=== PATIENT | female | born 1980 | race Caucasian/White ===

== ENCOUNTER → 2019-03-24 | Outpatient (CLI) | payer OTHER ==
--- NOTE | 2019-03-25 15:00 | MM ---
Reason for exam: clinical finding. Baseline mammogram. History: Patient has history of endometrial cancer at age 26. Benign excisional biopsy of the right breast, 2013. Physical Findings: Nurse Summary: 2cm nodule in the right breast at 10 o'clock and a 2cm nodule in the left breast at 11 o'clock (nurse dw). MG 3D Diag Mammo W/Cad LAKIA Bilateral CC, MLO, and XCCL view(s) were taken. The breast tissue is heterogeneously dense. This may lower the sensitivity of mammography. There are few scattered calcifications. No suspicious groups. Bilateral upper outer quadrant focal asymmetries. Left central inner 6 x 8mm posterior depth mass. These results were verbally communicated with the patient and result sheet given to the patient on 03/24/19. ASSESSMENT: Incomplete: need additional imaging evaluation, BI-RAD 0 RECOMMENDATION: Ultrasound of both breasts.
--- NOTE | 2019-03-25 15:07 | USB ---
Reason for exam: additional evaluation requested from abnormal screening. History: Patient has history of endometrial cancer at age 26. Benign excisional biopsy of the right breast, 2013. US Breast Limited BILAT Right limited breast ultrasound including focal area of concern, retroareolar and axilla demonstrates a 2.7 x 1.2 x 1.0cm solid lesion at 10 o'clock, 6 month follow up recommended, a 0.6 x 0.5 x 0.7cm lesion at 10 o'clock, questionable edge shadowing (palpable) biopsy recommended, a 0.3 x 0.3 x 0.4cm lesion too small to characterize at 11 o'clock, 6 month follow up recommended and a 0.3 x 0.2 x 0.3cm solid lesion at 12 o'clock, 6 month follow up recommended. Left limited breast ultrasound including focal area of concern, retroareolar and axilla demonstrates a 2.0 x 1.7 x 1.5cm solid lobe at 2 o'clock, palpable, biopsy recommended and a 0.6 x 0.5 x 1.1cm mixed lesion at 9 o'clock, corresponds with mammogram, biopsy recommended. These results were verbally communicated with the patient and result sheet given to the patient on 03/24/19. ASSESSMENT: Suspicious, BI-RAD 4 RECOMMENDATION: Ultrasound core biopsy of both breasts. Called Dr. Vallejo with mammographic findings and has scheduled an appointment for the patient for 04/01/19 at 7:[address] Kaiser. Biopsy scheduled for 04/11/19 at 8:00. PRELIMINARY REPORT CALLED AND FAXED TO DR. KAISER ON 03/25/19.
== END | disposition home or self-care (01) ==
LOC: RADMAMWWP 13:55
PROVIDERS: ATTEND Family Medicine Addiction Medicine
DX: N63.10 Unspecified lump in the right breast, unspecified quadrant (principal); R92.8 Other abnormal and inconclusive findings on diagnostic imaging of breast
CPT/HCPCS: 77066; 76642; G0279; 77062

== ENCOUNTER → 2019-04-01 | Outpatient (CLI) | payer OTHER ==
[2019-04-01 07:42] VITALS: BP 115/79; PULSE 75; RESP 16; TEMP 98.2; BMI 22.6
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
== END | disposition home or self-care (01) ==
LOC: WWCWWP 07:21
PROVIDERS: ATTEND Surgery
DX: Z53.9 Procedure and treatment not carried out, unspecified reason (principal)

== ENCOUNTER → 2019-04-11 | Day surgery (SDC) | payer OTHER ==
[2019-04-11 07:55] VITALS: RESP 16; BMI 22.6
[2019-04-11 10:28] VITALS: BP 100/64; PULSE 76; TEMP 97.8
--- NOTE | 2019-04-11 12:25 | USB ---
EXAMINATION TYPE: US biopsy breast VAD RT, US biopsy breast VAD LT Post procedure bilateral digital diagnostic mammograms DATE OF EXAM: 04/11/2019 CLINICAL HISTORY: 38-year-old female palpable abnormality 10:00 right breast and ultrasound abnormality 9:00 left breast. R92.8 Abnormal Mammogram. TECHNIQUE: Ultrasound guided core biopsy of the bilateral breasts COMPARISON: 03/24/2019 FINDINGS: The procedure of ultrasound guided core biopsy was explained to the patient. Benefits, alternatives, and risks were discussed. An informed consent was then obtained. The patient was placed in supine positioning for imaging and for the procedure. The overlying skin was prepped and draped in usual sterile fashion. Lidocaine was used as anesthetic into the skin and subcutaneous tissue up to area of concern in each breast in turn. RIGHT, 10:00 palpable - initial scanning showed a focal heterogeneous area of tissue, suspected dense island of fibroglandular tissue. The area became less defined and after the anesthetic injection. Under ultrasound guidance, a 13- gauge vacuum-assisted Mammotome Elite biopsy gun device was used to obtain 7 core samples. Following this, a coil clip was left in lesion. LEFT, 9:00 hypoechoic - under ultrasound guidance, a 13-gauge vacuum-assisted Mammotome Elite biopsy gun device was used to obtain 6 core samples. Following this, a wing clip was left in lesion. The patient tolerated the procedure well without any immediate complication. The patient was kept in the radiology department for short stay after the procedure and then discharged home in stable condition. Postprocedure mammogram shows right-sided coil clip in the region of the posterior upper-outer quadrant global asymmetry. Wing clip is located at the 10:00 position corresponding to an area of nodularity. IMPRESSION: Successful, uncomplicated ultrasound guided core biopsy of: 1.) 10:00 palpable area in the right breast (suspect a dense island of fibroglandular tissue) and 2.) 9:00 lesion in the left breast, benign etiology favored. Full pathology results to follow. If benign results, mammographic follow up can be performed. Pathology Results: Benign A. RIGHT BREAST, 10:00, ULTRASOUND GUIDED CORE BIOPSY: Fibrocystic changes including stromal fibrosis/scar and small cysts. B. LEFT BREAST, 9:00, ULTRASOUND GUIDED CORE BIOPSY: Fibroadenoma/fibroadenomatoid hyperplasia and background fibrocystic changes. Recommendation Follow up ultrasound of both breasts in 6 months. BHAVYAD
== END | disposition home or self-care (01) ==
LOC: RADUSWWP 07:34
PROVIDERS: ATTEND Surgery
DX: D24.2 Benign neoplasm of left breast (principal); N60.12 Diffuse cystic mastopathy of left breast; N60.11 Diffuse cystic mastopathy of right breast
CPT/HCPCS: 19083; 88305; 77066; A4648; J2001

== ENCOUNTER → 2019-04-21 | Outpatient (CLI) | payer OTHER ==
[2019-04-21 16:27] VITALS: BP 119/74; PULSE 88; RESP 18; TEMP 98.3; BMI 22.8
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
== END | disposition home or self-care (01) ==
LOC: WWCWWP 15:33
PROVIDERS: ATTEND Surgery
DX: Z53.9 Procedure and treatment not carried out, unspecified reason (principal)

== ENCOUNTER 2019-05-10 08:03 | Day surgery (SDC) | payer OTHER ==
[2019-05-09 11:06] VITALS: BMI 22.3
[~2019-05-10 08:03] MED LIST: DEXAMETHASONE SOD PHOSPHATE 10 MG/ML 1 ML VIAL IV ONE; HEPARIN SODIUM,PORCINE 5,000 UNIT/ML 1 ML VIAL SQ ONE; LACTATED RINGERS 1,000 ML IV SCH; MIDAZOLAM 2 MG/2 ML VIAL IV PRN; ONDANSETRON 4 MG/2 ML VIAL IVP ONE; Pre Op ABX Message 1 EACH MISC MISCELLANE ONE; SCOPOLAMINE 1.5MG/72HR PATCH TRANSDERM ONE; fentaNYL (PF) 50 MCG/ML 2 ML AMP IV PRN
[2019-05-10 08:38] LABS: Glucose,Whole Blood 80 mg/dL (75-99)
[2019-05-10] MEDS ORDERED: MIDAZOLAM 2 MG/2 ML VIAL ONE (08:45)
[2019-05-10] MEDS ORDERED: LIDOCAINE 1% INJ 10MG/ML (20 ML MDV) ONE (08:45)
[2019-05-10] MEDS ORDERED: fentaNYL (PF) 50 MCG/ML 2 ML AMP ONE (08:45)
[2019-05-10] MEDS ORDERED: PROPOFOL 10 MG/ML 20 ML VIAL IV ONE (08:45)
[2019-05-10] MEDS ORDERED: HYDROmorphone (PF) 1 MG/ML ONE (08:45)
[2019-05-10] MEDS ORDERED: LIDOCAINE (PF) 10 MG/ML 2 ML VIAL SQ ONE ×2 (09:06→09:23)
--- NOTE | 2019-05-10 10:21 | P.OP ---
Date of Procedure: 05/10/19 Preoperative Diagnosis: Palpable mass right breast, increasing in size tender, core biopsy benign Postoperative Diagnosis: Same Procedure(s) Performed: Right breast excisional biopsy via axillary incision Anesthesia: MARY Surgeon: Sakshi Kaiser Estimated Blood Loss (ml): 20 IV fluids (ml): 500 Pathology: other (Right breast tissue) Condition: stable Disposition: same day Indications for Procedure: Palpable mass right breast increasing in size and tender, core biopsy benign Operative Findings: Dense breast tissue, palpable mass upper outer quadrant Description of Procedure: The patient was taken to the operating room and following induction of anesthesia the right breast was prepped and draped in a sterile fashion. An axillary incision was made and dissection was performed to the palpable mass in the upper outer quadrant. With careful dissection we ere able to remove this area of tissue. Hemostasis was attained using electrocautery device as well as the Harmonic scalpel. Radiograph of the specimen revealed that the correct tissue had been removed. There was a marker in place at the area of palpable mass that had been biopsied preoperatively. This was a coil marker. The area of concern was removed. The wound was well irrigated. Surgicel and iodoform was placed. The subcutaneous tissues were closed using a 3-0 Vicryl suture. The skin was closed using a 4-0 Monocryl. Steri-Strips were applied. The patient tolerated the procedure in stable condition. All instrument and sponge counts were correct at the end of the case.
--- NOTE | 2019-05-10 10:23 | P.DS ---
Providers Attending physician: Sakshi Kaiser Primary care physician: Edy Vallejo Plan - Discharge Summary Discharge Rx Participant: Yes New Discharge Prescriptions: No Action Diazepam [Valium] 2 mg PO Q8HR PRN PRN Reason: Anxiety Discharge Medication List Diazepam [Valium] 2 mg PO Q8HR PRN 04/11/19 [History] Follow up Appointment(s)/Referral(s): Sakshi Kaiser MD [STAFF PHYSICIAN] - 1 Week Activity/Diet/Wound Care/Special Instructions: do not drive may shower after 48 hours wear bra at all times unless showering Discharge Disposition: HOME SELF-CARE
[2019-05-10 10:43] VITALS: TEMP 98.6
[2019-05-10] MEDS ORDERED: LACTATED RINGERS 1,000 ML IV ONE ×2 (10:59)
[2019-05-10 11:35] VITALS: RESP 18
[2019-05-10] MEDS ORDERED: HYDROcodone/APAP 5-325MG 1 EACH TAB PO ONE (11:45)
[2019-05-10 11:54] VITALS: BP 95/58; PULSE 65
--- NOTE | 2019-05-11 10:32 | MM ---
EXAMINATION TYPE: MG surgical specimen RT DATE OF EXAM: 05/10/2019 CLINICAL HISTORY: Palpable right breast abnormality, surgically excised TECHNIQUE: Surgical specimen was obtained from a right palpable abnormality that had been previously biopsied 04/11/2019 confirming the presence of an associated coil-shaped biopsy marker. COMPARISON: Breast biopsy dated 04/11/2019 IMPRESSION: As above
== END 2019-05-10 12:16 | disposition home or self-care (01) ==
LOC: OR 08:03
PROVIDERS: ATTEND Surgery
DX: N60.21 Fibroadenosis of right breast (principal); N64.89 Other specified disorders of breast; N60.11 Diffuse cystic mastopathy of right breast; N64.4 Mastodynia; F17.210 Nicotine dependence, cigarettes, uncomplicated; J30.2 Other seasonal allergic rhinitis; N15.9 Renal tubulo-interstitial disease, unspecified; H54.61 Unqualified visual loss, right eye, normal vision left eye; M79.7 Fibromyalgia; F41.9 Anxiety disorder, unspecified; E78.5 Hyperlipidemia, unspecified; G43.909 Migraine, unspecified, not intractable, without status migrainosus; Z90.710 Acquired absence of both cervix and uterus; Z85.42 Personal history of malignant neoplasm of other parts of uterus; Z80.49 Family history of malignant neoplasm of other genital organs; Z80.1 Family history of malignant neoplasm of trachea, bronchus and lung; Z80.3 Family history of malignant neoplasm of breast; Z80.42 Family history of malignant neoplasm of prostate; Z80.0 Family history of malignant neoplasm of digestive organs; Z90.89 Acquired absence of other organs; Z98.890 Other specified postprocedural states; Z87.820 Personal history of traumatic brain injury; Z88.0 Allergy status to penicillin; Z88.6 Allergy status to analgesic agent; Z88.8 Allergy status to other drugs, medicaments and biological substances; Z88.5 Allergy status to narcotic agent; Z88.1 Allergy status to other antibiotic agents
CPT/HCPCS: 88307; 76098; 19125; J2250; J1644; J1100; J2405; J2001; J3010; J1170; J2704

== ENCOUNTER 2024-03-25 23:02 | Emergency (ER) | payer OTHER ==
[2024-03-25 23:07] VITALS: RESP 18; TEMP 98.6
[2024-03-26 00:14] LABS: Appearance,Urine Clear (Clear); Bilirubin,Urine Negative (Negative); Blood,Urine Negative (Negative); Color,Urine Colorless; Glucose,Urine (UA) Negative (Negative); Ketones,Urine Negative (Negative); Leukocyte Esterase,Urine Negative (Negative); Nitrite,Urine Negative (Negative); Protein,Urine Negative (Negative); Specific Gravity,Urine 1.004 (1.001-1.035); Urobilinogen,Urine <2.0 mg/dL (<2.0)
[2024-03-26] MEDS: diphenhydrAMINE 50 MG/ML 1 ML VIAL IVP STA (00:27)
[2024-03-26] MEDS: METOCLOPRAMIDE 5 MG/ML 2 ML VIAL IVP STA (00:33)
[2024-03-26] MEDS: SODIUM CHLORIDE 0.9% 1,000 ML IV STA (00:36)
[2024-03-26 02:01] VITALS: PULSE 60
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
[2024-03-26 02:15] LABS: Basophils % (A) 0 %; Eosinophils # (A) 0.1 k/uL (0-0.7); Eosinophils % (A) 1 %; HGB 14.3 gm/dL (11.4-16.0); Lymphocytes # (A) 2.5 k/uL (1.0-4.8); Lymphocytes % (A) 20 %; MCH 35.6 pg (25.0-35.0); MCHC 34.9 g/dL (31.0-37.0); Macrocytosis Slight; Monocytes # (A) 0.7 k/uL (0-1.0); Monocytes % (A) 5 %; Neutrophils # (A) 8.9 k/uL (1.3-7.7); Neutrophils % (A) 71 %; Platelet Count 283 k/uL (150-450); RBC 4.02 m/uL (3.80-5.40); RDW 12.7 % (11.5-15.5); WBC 12.4 k/uL (3.8-10.6)
[2024-03-26 02:23] LABS: ALT 15 U/L (4-34); AST 24 U/L (14-36); African American GFR (CKD) >90 (>60 ml/min/1.73 sqM); Albumin 4.6 g/dL (3.5-5.0); Alkaline Phosphatase 74 U/L (38-126); Anion Gap 8 mmol/L; Blood Urea Nitrogen 16 mg/dL (7-17); Calcium 9.9 mg/dL (8.4-10.2); Carbon Dioxide 23 mmol/L (22-30); Chloride 105 mmol/L (98-107); Glucose 99 mg/dL (74-99); Lipase 143 U/L (23-300); Non-African American GFR(CKD) >90 (>60 ml/min/1.73 sqM); Potassium 3.7 mmol/L (3.5-5.1); Sodium 136 mmol/L (137-145); Total Bilirubin 0.6 mg/dL (0.2-1.3); Total Protein 7.4 g/dL (6.3-8.2)
[2024-03-26 03:38] VITALS: BP 121/80
--- NOTE | 2024-03-26 07:35 | XR ---
EXAMINATION TYPE: XR chest 2V DATE OF EXAM: 03/26/2024 COMPARISON: 02/26/2010 INDICATION: Chest pain short of breath nausea TECHNIQUE: Frontal and lateral views of the chest are obtained. FINDINGS: The heart size is normal. The pulmonary vasculature is normal. The lungs are clear. IMPRESSION: 1. No acute pulmonary process. [facility], Workstation: [facility], 03/26/2024 7:33 AM
== END 2024-03-26 03:40 | disposition home or self-care (01) ==
LOC: EC 23:02
CPT/HCPCS: 36415; 71046; 80053; 81003; 83690; 84484; 85025; 93005; 96361; 96374; 96375; 99284

== ENCOUNTER 2024-04-20 01:34 | Emergency (ER) | payer OTHER ==
[2024-04-20 01:44] VITALS: TEMP 98.3
[2024-04-20] MEDS: MECLIZINE 12.5 MG TAB PO STA (02:30)
[2024-04-20] MEDS: SODIUM CHLORIDE 0.9% 1,000 ML IV STA (02:31)
[2024-04-20] MEDS: HYDROmorphone 0.5 MG/0.5 ML SYRINGE IVP STA (02:35)
[2024-04-20 02:37] LABS: Basophils # (A) 0.1 k/uL (0-0.2); Basophils % (A) 1 %; Eosinophils # (A) 0.3 k/uL (0-0.7); Eosinophils % (A) 2 %; HCT 40.7 % (34.0-46.0); HGB 13.7 gm/dL (11.4-16.0); Lymphocytes # (A) 3.4 k/uL (1.0-4.8); Lymphocytes % (A) 26 %; MCH 34.7 pg (25.0-35.0); MCHC 33.6 g/dL (31.0-37.0); MCV 103.2 fL (80.0-100.0); Macrocytosis Slight; Mean Platelet Volume 8.4; Monocytes # (A) 0.7 k/uL (0-1.0); Monocytes % (A) 5 %; Neutrophils # (A) 8.1 k/uL (1.3-7.7); Neutrophils % (A) 64 %; Platelet Count 300 k/uL (150-450); RBC 3.95 m/uL (3.80-5.40); RDW 12.2 % (11.5-15.5); WBC 12.8 k/uL (3.8-10.6)
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
[2024-04-20 02:51] LABS: ALT 15 U/L (4-34); AST 23 U/L (14-36); African American GFR (CKD) >90 (>60 ml/min/1.73 sqM); Albumin 4.2 g/dL (3.5-5.0); Alkaline Phosphatase 75 U/L (38-126); Anion Gap 7 mmol/L; Blood Urea Nitrogen 14 mg/dL (7-17); Calcium 9.6 mg/dL (8.4-10.2); Carbon Dioxide 27 mmol/L (22-30); Chloride 107 mmol/L (98-107); Glucose 93 mg/dL (74-99); Magnesium 1.9 mg/dL (1.6-2.3); Non-African American GFR(CKD) >90 (>60 ml/min/1.73 sqM); Potassium 3.9 mmol/L (3.5-5.1); Sodium 141 mmol/L (137-145); Total Bilirubin 0.4 mg/dL (0.2-1.3); Total Protein 7.1 g/dL (6.3-8.2)
[2024-04-20 02:58] LABS: Partial Thromboplastin Time 24.5 sec (22.0-30.0); Prothrombin Time 10.6 sec (10.0-12.5)
[2024-04-20 03:28] VITALS: RESP 17
--- NOTE | 2024-04-20 03:39 | XR ---
EXAM: XR Chest, 2 Views CLINICAL HISTORY: Chest Pain TECHNIQUE: Frontal and lateral views of the chest. COMPARISON: 03/26/2024 FINDINGS: Lungs: Unremarkable. No consolidation. Pleural space: Unremarkable. Mediastinum: Unremarkable. Normal mediastinal contour. Bones/joints: No acute findings. IMPRESSION: No acute findings or substantial change.
[2024-04-20] MEDS: ACET/COD 300 MG/30 MG STARTER PACK 6 TAB BTL PO STA (04:22)
[2024-04-20 04:29] VITALS: BP 101/67; PULSE 66
== END 2024-04-20 04:29 | disposition home or self-care (01) ==
LOC: EC 01:34
DX: R07.89 Other chest pain (principal); R00.1 Bradycardia, unspecified; Z87.891 Personal history of nicotine dependence; Z88.0 Allergy status to penicillin; Z88.1 Allergy status to other antibiotic agents; Z88.6 Allergy status to analgesic agent; Z88.8 Allergy status to other drugs, medicaments and biological substances
CPT/HCPCS: 99285 ×2; 96374 ×2; 96361 ×2; 36415; 93005; 80053; 83735; 84484; 85025; 85610; 85730; 71046; J1171

== ENCOUNTER → 2024-05-23 | Outpatient (CLI) | payer OTHER ==
--- NOTE | 2024-05-24 13:49 | US ---
EXAMINATION TYPE: US transvaginal DATE OF EXAM: 05/23/2024 COMPARISON: NONE CLINICAL INDICATION: Female, 43 years old with history of R06.02 SOB N83.202 OVARIAN CYST LEFT; cyst seen on outside CT TECHNIQUE: Transvaginal (TV). Transvaginal sonographic images were medically necessary to better assess the following anatomy: Ovar ies Doppler imaging: Not performed. FINDINGS: Date of LMP: hysterectomy 20 yrs ago EXAM MEASUREMENTS: Uterus: Surgically absent Endometrial Stripe: Surgically absent Right Ovary: 2.8x2.5x2.2 cm Left Ovary: 2.2x1.9x1.3 cm 1. Uterus: Surgically absent 2. Endometrium: Surgically absent 3. Right Ovary: 1.9x1.5x2.0cm cystic area 4. Left Ovary: 0.8x0.8x1.1cm cystic area 5. Bilateral Adnexa: Obscured by overlying bowel gas 6. Posterior cul-de-sac: wnl exam limited by bowel IMPRESSION: Ovarian follicular cysts. [facility], , 05/24/2024 1:47 PM
== END | disposition home or self-care (01) ==
LOC: RADECHMAIN 16:20
PROVIDERS: ATTEND Family Medicine
DX: N83.202 Unspecified ovarian cyst, left side (principal); R06.02 Shortness of breath; N83.00 Follicular cyst of ovary, unspecified side; Z90.711 Acquired absence of uterus with remaining cervical stump
CPT/HCPCS: 76830

== ENCOUNTER → 2024-06-14 | Outpatient (CLI) | payer OTHER ==
--- NOTE | 2024-06-14 14:08 | CA ---
Transthoracic Echo Report Name: [place] Alanis Age: 43 Gender: F : 1980 Exam Date: 06/14/2024 11:57 Exam Location: [place] [facility] Ht (in): 61 Wt (lb): 147 Ordering Physician: Abida Castrejon MD Attending/Referring Phys: Mae Peraza MD Promotional Demonstrator Hannah Guevara, [facility] Procedure CPT: Indications: R06.02 SOB N83.202 OVARIAN CYST LEFT Cardiac Hx: Technical Quality: Fair Contrast 1: Total Dose (mL): Contrast 2: Total Dose (mL): MEASUREMENTS (Male / Female) Normal Values 2D ECHO LV Diastolic Diameter PLAX 5.1 cm 4.2 - 5.9 / 3.9 - 5.3 cm LV Systolic Diameter PLAX 3.3 cm IVS Diastolic Thickness 0.8 cm 0.6 - 1.0 / 0.6 - 0.9 cm LVPW Diastolic Thickness 0.8 cm 0.6 - 1.0 / 0.6 - 0.9 cm LV Relative Wall Thickness 0.3 RV Internal Dim ED PLAX 1.9 cm LA Systolic Diameter LX 3.6 cm 3.0 - 4.0 / 2.7 - 3.8 cm LV Diastolic Volume MOD BP 50.7 cm??? 67 - 155 / 56 - 104 cm??? LV Systolic Volume MOD BP 19.2 cm??? 22 - 58 / 19 - 49 cm??? LV Ejection Fraction MOD BP 62.2 % >= 55 % LV Cardiac Index MOD BP 1160.7 cm???/min???m??? LV Diastolic Volume MOD 4C 59.8 cm??? LV Systolic Volume MOD 4C 23.9 cm??? LV Ejection Fraction MOD 4C 60.0 % LV Cardiac Index MOD 4C 1318.3 cm???/min???m??? LV Diastolic Length 4C 6.4 cm LV Systolic Length 4C 4.9 cm LV Diastolic Volume MOD 2C 39.7 cm??? LV Systolic Volume MOD 2C 15.1 cm??? LV Ejection Fraction MOD 2C 61.9 % LV Cardiac Index MOD 2C 902.6 cm???/min???m??? LV Diastolic Length 2C 5.9 cm LV Systolic Length 2C 4.8 cm M-MODE Aortic Root Diameter MM 2.7 cm LA Systolic Diameter MM 2.5 cm LA Ao Ratio MM 0.9 AV Cusp Separation MM 1.9 cm DOPPLER Mitral E Point Velocity 74.0 cm/s Mitral A Point Velocity 64.3 cm/s Mitral E to A Ratio 1.2 MV Deceleration Time 293.5 ms MV E' Velocity 7.4 cm/s Mitral E to MV E' Ratio 9.9 TR Peak Velocity 177.0 cm/s TR Peak Gradient 12.5 mmHg Right Ventricular Systolic Press 22.5 mmHg FINDINGS Left Ventricle Left ventricular ejection fraction is estimated at 55-60%. Normal Left ventricular size, wall thickness, systolic function with no obvious regional wall motion abnormalities. Normal Left ventricular diastolic filling pattern. Right Ventricle Normal right ventricular size and function. Right ventricular systolic pressure within normal limits. Right Atrium Normal right atrial size. Left Atrium Normal left atrial size. Mitral Valve Structurally normal mitral valve. Trace mitral regurgitation. No mitral stenosis. Aortic Valve Trileaflet aortic valve. No aortic valve stenosis or regurgitation. Tricuspid Valve Structurally normal tricuspid valve. Trace tricuspid regurgitation. No tricuspid stenosis. Pulmonic Valve Structurally normal pulmonic valve. No pulmonic stenosis. Trace pulmonic regurgitation. Pericardium No pericardial or pleural effusion. Aorta Normal size aortic root and proximal ascending aorta. CONCLUSIONS Normal LV size and function Normal RV size and function Previewed by: Dr. Kj Xavier MD (Electronically Signed) Final Date: 14 June 2024 14:08
== END | disposition home or self-care (01) ==
LOC: RADECHMAIN 11:50
PROVIDERS: ATTEND Family Medicine
DX: N83.202 Unspecified ovarian cyst, left side (principal); R06.02 Shortness of breath
CPT/HCPCS: 93306

== ENCOUNTER → 2024-06-16 | Outpatient (CLI) | payer OTHER ==
--- NOTE | 2024-06-17 18:08 | US ---
EXAMINATION TYPE: US abdomen complete DATE OF EXAM: 06/16/2024 COMPARISON: NONE CLINICAL INDICATION: Female, 43 years old with history of R10.10 UPPER ABDOMINAL PAIN; Abdominal pain x 2 months. TECHNIQUE: Grayscale and color Doppler imaging of the abdomen was performed. FINDINGS: EXAM MEASUREMENTS: Liver Length: 13.5 cm Gallbladder Wall: 0.30 cm CBD: 0.21 cm, color Doppler imaging was utilized to isolate the common bile duct for measurement. Spleen: limited measurement: 8.2 cm Right Kidney: 11.1 x 5.5 x 4.5 cm Left Kidney: 10.6 x 4.2 x 5.2 cm ADJUSTER NOTES: Exam is limited due to gas. Pancreas: Obscured Liver: Appears coarse in echotexture. *Hyperechoic area seen within the right lobe: 0.5 x 0.5 x 0.5 c m. Gallbladder: *Hyperechoic area seen that appears to be attached to the gallbladder wall: 0.3 x 0.2 x 0.3 cm. Appearance of comet tail artifact. Evidence for sonographic Sharp's sign: No CBD: Appears wnl Spleen: Limited, portions seen appear wnl Right Kidney: No hydronephrosis or masses seen Left Kidney: Limited evaluation of upper pole due to gas. No hydronephrosis or masses seen Upper IVC: Appears wnl Abd Aorta: Appears wnl. Slightly limited due to gas. IMPRESSION: 1. No evidence for acute process. 2. Coarse in echotexture to liver correlate for hepatocellular disease with serum markers. 3. Hyperechoic lesion in the right hepatic lobe possibly representing hepatic hemangioma in the abse nce of risk factors. This can be completely evaluated with MRI liver mass protocol if clinically zehra anted. 4. Adenomyomatosis of the gallbladder wall suggested. [facility], , 06/17/2024 6:06 PM
== END | disposition home or self-care (01) ==
LOC: RADUSWWP 09:27
PROVIDERS: ATTEND Family Medicine
DX: R10.10 Upper abdominal pain, unspecified (principal); K76.9 Liver disease, unspecified
CPT/HCPCS: 76700

== ENCOUNTER → 2024-07-14 | Outpatient (CLI) | payer OTHER ==
--- NOTE | 2024-07-14 09:32 | NM ---
EXAMINATION TYPE: NM hepatobiliary w CCK DATE OF EXAM: 07/14/2024 COMPARISON: Ultrasound abdomen June 16, 2024 CLINICAL INDICATION: Female, 43 years old with history of R10.10 UPPER ABD PAIN UNSPECIFIED; TECHNIQUE: After the intravenous administration of 4.9 mCi Tc 99m Mebrofenin hepatobiliary scintigrap hy is performed. Immediate images post injection. FINDINGS: There is satisfactory initial accumulation of tracer by the liver. The gallbladder is visualized wit hin 35 minutes. The small bowel activity is noted within 1 8 minutes. At one hour CCK was administe red, patient was injected with 1.33 mcg of Kinevac, and gallbladder ejection fraction is calculated a t 55 %, in the normal range. Therefore there is no scintigraphic evidence of cystic or common bile d uct obstruction to suggest acute cholecystitis or gallbladder dyskinesia. IMPRESSION: Exam is within normal limits. [facility], , 07/14/2024 9:29 AM
== END | disposition home or self-care (01) ==
LOC: RADNMMAIN 07:09
PROVIDERS: ATTEND Family Medicine
DX: R10.10 Upper abdominal pain, unspecified (principal)
CPT/HCPCS: 78227; A9537; J2805

== ENCOUNTER → 2024-07-18 | Outpatient (CLI) | payer OTHER ==
--- NOTE | 2024-07-18 18:04 | CT ---
EXAMINATION TYPE: CT ChestAbdPelvis wo/w con DATE OF EXAM: 07/18/2024 2:32 PM COMPARISON: None. CLINICAL INDICATION: Female, 43 years old with history of R16.0 HEPATOMEGALY, NOT ELSEWHERE CLASSIFIE D, Umbilical pain, left side abdominal rib pain, SOB. x 3 months TECHNIQUE: CT ChestAbdPelvis wo/w con , with sagittal coronal reformats. If MIP/3-D images were creat ed, there are created on a separate workstation. Contrast used:100 mL of Isovue 300 without and with IV Contrast, (none if empty) Oral contrast used: with Oral Contrast (none if empty) CT DLP: 1282.8 mGycm, Automated exposure control for dose reduction was used. FINDINGS: CT CHEST: Portion of the thyroid visualized is normal. There is a 0.6 cm nodule in the anterolateral right midlung. Series 4 image 27. No suspicious infiltr ates are present. No enlarged mediastinal or hilar adenopathy is evident. The ascending aorta diameter at the level of the main pulmonary artery is 2.6 cm. The main pulmonary artery diameter at the bifurcation is 2.[address] ABDOMEN: Liver: Normal. Hepatomegaly not present. Craniocaudal dimension 13.8 cm, less than the 15.5 cm maxim um normal Spleen: Normal Pancreas: Normal Adrenal glands: The adrenal glands are normal. Gallbladder: Normal Kidneys: No masses are evident. No hydronephrosis is present. No cysts are present. No renal stone s are evident. Aorta: Normal Inferior vena cava: Normal. CT PELVIS: Loops of bowel within the abdomen and pelvis are normal. There are loops of bowel which are incom pletely distended or lack oral contrast limiting their evaluation. Appendix: Normal as visualized. Urinary bladder: Normal Genitourinary structures: There appears to be a 1.4 cm cyst on the left ovary. Uterus and right ovary are not clearly identified Osseous structures: No suspicious lytic or sclerotic lesions. IMPRESSION: 1. Left ovarian cyst. 2. Small nodule right lung field. Follow-up exam in 6 months recommended. 3. No hepatomegaly. [facility], , 07/18/2024 6:02 PM
== END | disposition home or self-care (01) ==
LOC: RADCTMAIN 12:12
PROVIDERS: ATTEND Family Medicine
DX: R16.0 Hepatomegaly, not elsewhere classified (principal); Z85.3 Personal history of malignant neoplasm of breast; R06.02 Shortness of breath; N83.202 Unspecified ovarian cyst, left side; R91.1 Solitary pulmonary nodule
CPT/HCPCS: 71270; 74178; Q9967